=== PATIENT | female | born 1960 | race Asian ===

== ENCOUNTER 2016-04-23 07:41 | Day surgery (SDC) | payer BC ==
[~2016-04-23] VITALS: Ht 152.4 cm; Wt 52.0 kg
[~2016-04-23 07:41] MED LIST: AMLO5TAB4 PO; ATOR10TA65 PO; CALC1TAB80 PO; MESA1.2T PO
[2016-04-23 08:53] VITALS: Ht 152.4 cm; Wt 52.0 kg
[2016-04-23 09:25] VITALS: BP 142/74; PULSE 80; RESP 18
[2016-04-23 10:47] VITALS: BP 113/59; PULSE 71; RESP 14
[2016-04-23] MEDS ORDERED: FENTAnyl 50 MCG/ML VIAL ONE (12:45)
[2016-04-23] MEDS ORDERED: MIDAZOLAM 1 MG/ML 2 ML INJ ONE (12:45)
--- NOTE | 2016-04-23 20:41 | GILP ---
DATE OF PROCEDURE: NAME OF PROCEDURES: Colonoscopy and biopsy. SURGEON: Elias Pa MD PREOPERATIVE DIAGNOSIS: Ulcerative colitis. POSTOPERATIVE DIAGNOSES: 1. Ulcerative colitis extending up to 23 cm from the anus and biopsies were taken for histopatholog y. 2. Internal and external hemorrhoids. INDICATION FOR THE PROCEDURE: Ms. Umu Ascencio is a 56-year-old female patient who had history of ulcerative colitis for more than 15 years. The patient gave history of episodes of diarrhea, so the patient was scheduled for colonoscopic examination for further evaluation. The procedure and possible complications are well explained to the patient. She understood and cons ented to the procedure. DESCRIPTION OF PROCEDURE: Under the influence of fentanyl and Versed, the colonoscope was carefully introduced in the rectum. Under direct vision, it was advanced all the way to the cecum. FINDINGS: The patient had ulcerative colitis extending up to 23 cm from the anus. The proximal par t of the colon was normal. Biopsies were taken for histopathology. The patient was noted to have h emorrhoids. She tolerated the procedure very well and there was no complication from the procedure. At the end of the procedures, she was awake with stable vital signs and she was discharged home to the care of her family. IMPRESSION: 1. Colonoscopy all the way to the cecum. 2. Ulcerative colitis extending up to 23 cm from the anus and biopsies were taken for histopatholog y. 3. Internal and external hemorrhoids. PLAN: 1. Colazal 2 tablets p.o. t.i.d. 2. Await histopathology reports. Dictated By: ELIAS PA MD GD/JEANNIE Conf#: [id number] DID#: [id number] CC: ELIAS PA MD;*EndCC*
== END 2016-04-23 11:24 | disposition home or self-care (01) ==
LOC: GIL 07:41
PROVIDERS: ATTEND Internal Medicine Gastroenterology
DX: K51.90 Ulcerative colitis, unspecified, without complications (principal); K52.89 Other specified noninfective gastroenteritis and colitis; K64.4 Residual hemorrhoidal skin tags; K64.8 Other hemorrhoids
CPT/HCPCS: 45380; 88305; J2250; J3010; Z7610